=== PATIENT | female | born 1975 | race Caucasian/White ===

== ENCOUNTER 2017-04-08 08:12 | Day surgery (SDC) | payer BC ==
[~2017-04-08] VITALS: Ht 165.1 cm; Wt 72.6 kg
[~2017-04-08 08:12] MED LIST: ALL DAY ALLERGY10 M3 PO; JUNEL1 EACH PO
[2017-04-08 08:55] VITALS: BP 154/72
[2017-04-08 12:07] VITALS: BP 146/71
[2017-04-08 12:48] VITALS: BP 142/74
== END 2017-04-08 12:50 | disposition home or self-care (01) ==
LOC: SDC 08:12
DX: N84.1 Polyp of cervix uteri (principal); N87.9 Dysplasia of cervix uteri, unspecified; D25.0 Submucous leiomyoma of uterus
CPT/HCPCS: 88305; J0690; J1100; J2250; J2405; J3010

== ENCOUNTER 2017-05-11 06:37 | Day surgery (SDC) | payer BC ==
[~2017-05-11] VITALS: Ht 165.1 cm; Wt 72.6 kg
[2017-05-11 07:16] VITALS: BP 132/81
[2017-05-11 14:38] VITALS: BP 136/77
[2017-05-11 20:33] VITALS: BP 132/71
[2017-05-11 23:58] VITALS: BP 111/58
[2017-05-12 04:13] VITALS: BP 118/63
[2017-05-12 07:14] LABS: CHLORIDE 104 MEQ/L (99-109); CREATININE 0.9 MG/DL (0.6-1.3); GFR ESTIMATE (CALCULATED) > 59 mL/min/; GLUCOSE 97 mg/dL (70-99); POTASSIUM 3.9 MEQ/L (3.7-5.4); SODIUM 138 MEQ/L (136-147); UREA NITROGEN (BUN) 10 mg/dL (9-23)
[2017-05-12 07:40] LABS: BASOPHIL (%) 0.4 % (0-1); EOSINOPHIL (%) 0.3 % (0-5); HEMATOCRIT 25.5 % (36.0-46.0); HEMOGLOBIN 7.9 G/DL (11.9-15.5); IMMATURE GRANULOCYTE (%) 0.3 % (0.0-0.7); LYMPHOCYTE (%) 34.4 % (15-42); LYMPHOCYTE COUNT 2.6 K/uL (1.0-2.8); MCH 22.5 PG (29.0-34.0); MCV 72.6 FL (83-99); MONOCYTE COUNT 0.9 K/uL (0-0.8); NEUTROPHIL (%) 52.6 % (45-76); PLATELET COUNT 421 K/uL (156-360); RBC DIS.WIDTH-SD 37.1 % (39-53); RED BLOOD COUNT 3.51 M/uL (3.80-5.20); WHITE BLOOD COUNT 7.6 K/uL (4.1-10.2)
[2017-05-12 08:15] VITALS: BP 130/68
== END 2017-05-12 09:55 | disposition home or self-care (01) ==
LOC: SDC 06:37 → 2EAST 11:15 → 2EASTP 11:15 → 2SOUTH 11:15 → ENRESERV 11:25 → 2EASTP 14:22 → SDC 16:28 → 2EASTP 05-12 09:55
PROVIDERS: Obstetrics & Gynecology Gynecology
DX: D25.0 Submucous leiomyoma of uterus (principal); N94.6 Dysmenorrhea, unspecified; N80.3 Endometriosis of pelvic peritoneum; N85.6 Intrauterine synechiae; N73.6 Female pelvic peritoneal adhesions (postinfective); J30.2 Other seasonal allergic rhinitis; Z82.49 Family history of ischemic heart disease and other diseases of the circulatory system; Z83.3 Family history of diabetes mellitus
CPT/HCPCS: 80048; 85025; 87086; 88309; G0378; J0330; J0690; J1170; J1644; J1885; J2001; J2250; J2405; J3010; J3475; J7120; Q0175